=== PATIENT | male | born 1970 | race American Indian/Alaskan Native ===

== ENCOUNTER 2017-05-21 13:04 | Outpatient (CLI) | payer BC ==
--- NOTE | 2017-05-21 15:36 | XRay Report ---
Right hand and wrist: Pain. Routine views of both the hand and the wrist demonstrate generally unremarkable digits with good preservation of the interspaces, articular surfaces, and alignment. No swelling identified. The carpal bones however are diffusely abnormal with multiple areas of inhomogeneous mineralization and subchondral cysts involving virtually all of the bones with the possible exception of the capitate. The posterior growth are the most severely involved with an articular spur between the navicular and distal radius. There is severe narrowing of the intercarpal joint spaces as well as between the radius and carpal bones. A small collection of calcification is noted at the articulation between the radius and ulnar. 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 The mid and anterior hand appear generally unremarkable.
== END 2017-05-21 13:05 | disposition home or self-care (01) ==
LOC: XRAY 13:04
PROVIDERS: ATTEND Nurse Practitioner
DX: M19.041 Primary osteoarthritis, right hand (principal); M19.031 Primary osteoarthritis, right wrist

== ENCOUNTER 2018-07-06 10:33 | Outpatient (CLI) | payer BC ==
[2018-07-06 12:06] LABS: Hematocrit 41.6 % (35.5-45.6); Hemoglobin 14.2 gm/dl (11.8-15.2); Mean Corpuscular HGB Conc 34 % (32-34); Mean Corpuscular Volume 87 fl (84-94); Platelet Count 235 K/mm3 (140-440); Red Cell Distribution Width 16.5 % (13.2-15.2)
[2018-07-06 12:25] LABS: Alanine Aminotransferase 26 units/L (7-56); Albumin 4.6 g/dL (3.9-5); BUN/Creatinine Ratio 13; Blood Urea Nitrogen 15 mg/dL (9-20); Calcium 9.5 mg/dL (8.4-10.2)
[2018-07-06 12:26] LABS: HDL Cholesterol 42 mg/dL (40-59); Hemolysis Index 5; LDL Cholesterol,Direct 167 mg/dL (50-130)
[2018-07-09 14:10] LABS: Vitamin D, 25-OH, D2 <4 ng/mL
== END 2018-07-06 10:34 | disposition home or self-care (01) ==
LOC: LAB 10:33
PROVIDERS: ATTEND Internal Medicine
DX: Z00.01 Encounter for general adult medical examination with abnormal findings (principal); Z13.1 Encounter for screening for diabetes mellitus; Z13.220 Encounter for screening for lipoid disorders; R39.11 Hesitancy of micturition
CPT/HCPCS: 36415; 80053; 80061; 82306; 82607; 83036; 84153; 84443; 85027

== ENCOUNTER 2018-10-11 13:17 | Outpatient (CLI) | payer BC ==
--- NOTE | 2018-10-11 15:59 | Vascular Lab Report ---
DUPLEX DOPPLER LOWER EXTREMITY VEINS, RIGHT INDICATION: (R60.0) LOCALIZED EDEMA/ RIGHT LEG SWELING/DVT STAT. TECHNIQUE: Duplex doppler imaging was performed through the veins of the right lower extremity using venous compression and other maneuvers. COMPARISON: No relevant prior imaging study available. FINDINGS: Right Common femoral vein: Negative. Right Superficial femoral vein: Negative. Right Popliteal vein: Negative. Right Calf veins: Negative. Additional findings: None.. IMPRESSION: No sonographic evidence for DVT in the right lower extremity. Signer Name: Surinder Child Jr, MD Signed: 10/11/2018 3:55 PM Workstation Name: [id number]
== END 2018-10-11 13:18 | disposition home or self-care (01) ==
LOC: VAS 13:17
PROVIDERS: ATTEND Internal Medicine
DX: R60.0 Localized edema (principal)